=== PATIENT | female | born 1955 | race Caucasian/White ===

== ENCOUNTER 2022-05-30 19:33 | Emergency (ER) | payer MEDICARE, OTHER ==
[~2022-05-30] VITALS: Ht 154.9 cm; Wt 50.0 kg
[~2022-05-30 19:33] MED LIST: ASPIRIN81 MG PO; CEPHALEXIN500 M1 PO; HYDROCHLOROTHIA25 MG PO; LISINOPRIL20 MG PO; PYRIDIUM200 MG PO; SERTRALINE HCL25 MG PO
[2022-05-30] MEDS ORDERED: CIPRO500 MG PO ×2 (21:40→22:04)
[2022-05-30] MEDS ORDERED: AZO STANDARD95 MG PO ×2 (21:40→22:04)
== END 2022-05-30 22:29 | disposition home or self-care (01) ==
LOC: ED 19:33
DX: N39.0 Urinary tract infection, site not specified (principal); B96.89 Other specified bacterial agents as the cause of diseases classified elsewhere; R31.9 Hematuria, unspecified; I10 Essential (primary) hypertension; J44.9 Chronic obstructive pulmonary disease, unspecified; Z88.2 Allergy status to sulfonamides; Z79.899 Other long term (current) drug therapy; Z79.82 Long term (current) use of aspirin
CPT/HCPCS: 81001; A9270